=== PATIENT | female | born 1955 | race Caucasian/White ===

== ENCOUNTER 2019-03-21 07:56 | Inpatient (IN) | payer MEDICAID ==
[~2019-03-21 07:56] MED LIST: Acetaminophen 325 MG Tab PO SCH; EPINEPHrine 1 MG/ML SDV ONE; Lactated Ringers 1,000 ML IV SCH; Lidocaine 1%/Sod Bicarbonate in NS 8.4% 1 ML Syringe IDERM PRN; Pregabalin 25 MG Cap PO SCH; Ropivacaine 0.5% 5 MG/ML 30 ML SDV ONE; Sodium Chloride 0.9% 10 ML Syringe FLUSH PRN; oxyCODONE ER 10 MG TAB.ER PO SCH
[2019-03-21] MEDS ORDERED: fentaNYL 100 MCG/2 ML SDV ONE (08:44)
[2019-03-21] MEDS ORDERED: Propofol 200 MG/20 ML SDV ONE (08:44)
[2019-03-21] MEDS ORDERED: Midazolam 1 MG/ML 2 ML SDV ONE (08:44)
[2019-03-21] MEDS ORDERED: Lidocaine 1% 4 ML ONE (08:45)
[2019-03-21] MEDS ORDERED: Ketorolac 30 MG/ML SDV ONE (08:45)
[2019-03-21] MEDS ORDERED: Ketamine 500 mg/10 ML MDV ONE (08:45)
[2019-03-21] MEDS ORDERED: Ondansetron 4 MG/2 ML SDV ONE (08:45)
[2019-03-21] MEDS ORDERED: Dexamethasone 4 MG/ML 5 ML MDV ONE (08:45)
[2019-03-21] MEDS ORDERED: Lactated Ringers 1,000 ML ONE (08:51)
--- NOTE | 2019-03-21 08:54 | PCM.PREANE ---
Preanesthetic Assessment - Procedure Proposed Procedure: right total knee - Anesthesia/Transfusion/Family Hx Anesthesia History: Prior Anesthesia Without Reaction Family History of Anesthesia Reaction: No Family History of Anesthesia Reaction, Other: Family history of pseudocholinesterase deficiency Transfusion History: No Prior Transfusion(s) Intubation History: Unknown - Review of Systems General: No Symptoms Pulmonary: No Symptoms Cardiovascular: No Symptoms Gastrointestinal: No Symptoms Neurological: No Symptoms Other: Reports: None - Physical Assessment NPO Status Date: 03/20/19 NPO Status Time: 19:00 (pill with sip of water) Vital Signs: Last Vital Signs Temp 97.4 F 03/21/19 08:05 Pulse 59 L 03/21/19 08:05 Resp 16 03/21/19 08:05 BP 99/63 03/21/19 08:05 Pulse Ox 99 03/21/19 08:05 Height: 5 ft 7 in Weight: 78.925 kg ASA Class: 2 Mental Status: Alert & Oriented x3 Airway Class: Mallampati = 1 Dentition: Reports: Normal Dentition, Missing Tooth/Teeth Thyro-Mental Finger Breadths: 3 Mouth Opening Finger Breadths: 3 ROM/Head Extension: Full Lungs: Clear to Auscultation, Normal Respiratory Effort Cardiovascular: Regular Rate, Regular Rhythm - Lab Values: Laboratory Last Values MRSA (PCR) Negative 02/23/19 14:48 - Allergies Allergies/Adverse Reactions: Allergies Allergy/AdvReac Type Severity Reaction Status Date / Time No Known Allergies Allergy Verified 03/18/19 14:49 - Blood Blood Available: No - Acknowledgements Anesthesia Type Planned: Spinal Pt an Appropriate Candidate for the Planned Anesthesia: Yes Alternatives and Risks of Anesthesia Discussed w Pt/Guardian: Yes Pt/Guardian Understands and Agrees with Anesthesia Plan: Yes PreAnesthesia Questionnaire HEENT History: Reports: Hard of Hearing, Other (See Below) Other HEENT History: left eye conjunctivitis, wears contacts Cardiovascular History: Reports: High Cholesterol, Hypertension Respiratory History: Reports: None Gastrointestinal History: Reports: None Genitourinary History: Reports: None [employer] History: Reports: Musculoskeletal History: Reports: Arthritis Other Musculoskeletal History: Rib and pelvis fracture from horse accident, bakers cyst Neurological History: Reports: None Psychiatric History: Reports: None Endocrine/Metabolic History: Reports: None Hematologic History: Reports: None Immunologic History: Reports: None Oncologic (Cancer) History: Reports: Breast (august 2018) Dermatologic History: Reports: None, Other (See Below) Other Dermatologic History: atopic dermatitis - Infectious Disease History Infectious Disease History: Reports: Chicken Pox, Mumps - Past Surgical History Head Surgeries/Procedures: Reports: None HEENT Surgical History: Reports: Cataract Surgery Cardiovascular Surgical History: Reports: None Respiratory Surgical History: Reports: None GI Surgical History: Reports: None Female Surgical History: Reports: Section Male Surgical History: Reports: None Endocrine Surgical History: Reports: None Neurological Surgical History: Reports: None Musculoskeletal Surgical History: Reports: Knee Replacement Oncologic Surgical History: Reports: None, Lumpectomy Dermatological Surgical History: Reports: None - SUBSTANCE USE Smoking Status *Q: Never Smoker Tobacco Use Within Last Twelve Months: No Second Hand Smoke Exposure: No Days Per Week of Alcohol Use: 0 Recreational Drug Use History: No - HOME MEDS Home Medications: Home Meds Calcium Carb & Citrate/Vit D3 [Citracal + D ER] 1 tab PO DAILY 03/19/18 [History ] Cholecalciferol (Vitamin D3) [Vitamin D3] 5,000 unit PO DAILY 03/19/18 [History] FA/Lycopene/Lut/MV,Ca,Iron,Min [Centrum] 1 tab PO DAILY 03/19/18 [History] atorvaSTATin [Lipitor] 20 mg PO DAILY 03/19/18 [History] Anastrozole [Arimidex] 1 mg PO DAILY 03/18/19 [History] Ascorbate Calcium/Bioflavonoid [Trinh-C 1,000 mg Tablet] 1 tab PO DAILY PRN [History] Aspirin [Halfprin] 81 mg PO DAILY 03/18/19 [History] Hydrochlorothiazide [Microzide] 12.5 mg PO DAILY 03/18/19 [History] Lisinopril [Prinivil] 20 mg PO DAILY 03/18/19 [History] - CURRENT (IN HOUSE) MEDS Current Meds: Current Medications Acetaminophen (Tylenol) 975 mg PO ONETIME [facility] Stop: 03/21/19 18:00 Last Admin: 03/21/19 08:14 Dose: 975 mg Bisacodyl (Dulcolax) 5 mg PO DAILY PRN PRN Reason: Constipation Morphine Sulfate 8 mg/Epinephrine HCl 0.3 mg/Cefuroxime Sodium 750 mg/Ketorolac Tromethamine 30 mg/Sodium Chloride 27.9 ml 0 mg .XX ONETIME ONE Stop: 03/21/19 12:01 Cyclobenzaprine HCl (Flexeril) 10 mg PO TID PRN PRN Reason: Spasms Docusate Sodium (Colace) 100 mg PO BID [facility] Famotidine (Pepcid) 20 mg PO Q12H [facility] Lactated Ringer's (Ringers, Lactated) 1,000 mls @ 125 mls/hr IV ASDIRECTED [facility] Stop: 03/21/19 23:00 Cefazolin Sodium/Dextrose 2 gm (/ Premix) 50 mls @ 100 mls/hr IV Q8H [facility] Stop: 03/22/19 11:29 Ketorolac Tromethamine (Toradol) 15 mg IVPUSH Q6H PRN PRN Reason: Pain Lidocaine/Sodium Bicarbonate (Buffered Lidocaine 1% In Ns 8.4%) 0.25 ml IDERM ONETIME PRN PRN Reason: Prior to IV Start Stop: 03/21/19 18:00 Magnesium Hydroxide (Milk Of Magnesia) 30 ml PO BID PRN PRN Reason: Constipation Morphine Sulfate (Morphine) 2 mg IVPUSH Q2H PRN PRN Reason: Breakthrough Pain Naloxone HCl (Narcan) 0.1 mg IVPUSH Q5M PRN PRN Reason: Oversedation Ondansetron HCl (Zofran) 4 mg IVPUSH Q6H PRN PRN Reason: Nausea/Vomiting Oxycodone HCl (Oxycontin) 10 mg PO ONETIME [facility] Stop: 03/21/19 18:00 Last Admin: 03/21/19 08:14 Dose: 10 mg Oxycodone/Acetaminophen (Percocet 325-5 Mg) 1 - 2 tab PO Q4H PRN PRN Reason: Pain Pregabalin (Lyrica) 50 mg PO ONETIME [facility] Stop: 03/21/19 18:00 Last Admin: 03/21/19 08:14 Dose: 50 mg Rivaroxaban (Xarelto) 10 mg PO DAILY [facility] Senna (Senna) 8.6 mg PO BID PRN PRN Reason: Constipation Sodium Chloride (Saline Flush) 10 ml FLUSH ASDIRECTED PRN PRN Reason: Keep Vein Open Stop: 03/21/19 18:00 Discontinued Medications Epinephrine HCl (Adrenalin) Confirm Administered Dose 1 mg .ROUTE .STK-MED ONE Stop: 03/21/19 03:33 Ropivacaine (Naropin 0.5%) Confirm Administered Dose 30 ml .ROUTE .[facility]-MED ONE Stop: 03/21/19 03:33
[2019-03-21] MEDS ORDERED: ceFAZolin 1 GM Vial ONE (09:07)
[2019-03-21] MEDS ORDERED: ePHEDrine/Normal Saline 25 MG/5 ML Syringe ONE (10:50)
[2019-03-21] MEDS: Iodine/Sodium Iodide 2% Tincture 30 ML Bottle ONE ×2 (10:56→11:27)
[2019-03-21] MEDS: ceFAZolin 1 GM Vial ONE ×2 (10:57→11:29)
[2019-03-21] MEDS: Morphine 8 MG, EPINEPHrine 0.3 MG, Cefuroxime 750 MG, Ketorolac 30 MG, Sodium Chloride ... ONE ×15 (10:57→13:48)
[2019-03-21] MEDS: Bupivacaine 0.25% 10 ML SDV ONE ×2 (10:57→11:33)
[2019-03-21] MEDS: Vancomycin 1 GM SDV ONE ×2 (10:58→11:37)
[2019-03-21] MEDS ORDERED: Ondansetron 4 MG/2 ML SDV IVPUSH PRN ×2 (11:09→12:00)
[2019-03-21] MEDS ORDERED: fentaNYL 100 MCG/2 ML SDV IVPUSH PRN (11:09)
[2019-03-21] MEDS ORDERED: HYDROmorphone 0.5 MG/0.5 ML Syringe IVPUSH PRN (11:09)
[2019-03-21] MEDS ORDERED: Ketorolac 15 MG/ML SDV IVPUSH PRN (12:00)
[2019-03-21] MEDS ORDERED: Cyclobenzaprine 10 MG Tab PO PRN (12:00)
[2019-03-21] MEDS ORDERED: Acetaminophen/oxyCODONE 325-5 MG Tab PO PRN (12:00)
[2019-03-21] MEDS ORDERED: Sennosides 8.6 MG Tab PO PRN (12:00)
[2019-03-21] MEDS ORDERED: Magnesium Hydroxide 400 MG/5 ML Susp 30 ML Cup PO PRN (12:00)
[2019-03-21] MEDS ORDERED: Bisacodyl 5 MG Tab PO PRN (12:00)
[2019-03-21] MEDS ORDERED: Morphine 2 MG/ML Syringe IVPUSH PRN (12:00)
[2019-03-21] MEDS ORDERED: Naloxone 0.4 MG/ML SDV IVPUSH PRN (12:00)
--- NOTE | 2019-03-21 12:24 | PCM.POSTAN ---
POST ANESTHESIA ASSESSMENT - MENTAL STATUS Mental Status: Alert, Oriented - VITAL SIGNS Vital Signs: Last Vital Signs Temp 36.3 C 03/21/19 08:05 Pulse 59 L 03/21/19 08:05 Resp 16 03/21/19 08:05 BP 99/63 03/21/19 08:05 Pulse Ox 99 03/21/19 08:05 - RESPIRATORY Respiratory Status: Respiratory Rate WNL, Airway Patent, O2 Saturation Stable, Supplemental Oxygen - CARDIOVASCULAR CV Status: Pulse Rate WNL, Blood Pressure Stable - GASTROINTESTINAL GI Status: No Symptoms - PAIN Pain Score: 0 - POST OP HYDRATION Hydration Status: Adequate & Stable
--- NOTE | 2019-03-21 12:27 | PCM.SN ---
- Free Text/Narrative Note: Right selective femoral nerve block at the adductor canal for post-operative pain control Time Out: 1213 Start: 1214 End: 1218 Chart reviewed. Consent signed. Questions answered. Appropriate monitors applied. Time out performed. Right mid-shaft femur identified via ultrasound. Scanning medially of right femur, identification of the femoral artery, femoral vein, and nerve bundles noted within the adductor canal. The skin was prepped lateral to the ultrasound probe with chlorahexadine times two. The 21ga 4 insulated block needle was inserted under direct ultrasound guidance into the adductor canal. 25mL of 0.5% ropivacaine with 1:200,000 epinephrine was injected cirmcumferentially around the nerve with intermittent negative aspiration noted every 5mLs. Procedure performed under aseptic technique with sterile probe cover, sterile gloves, and mask noted. Patient tolerated the procedure well. See pictures on progress note and vital signs on nurses notes. Block completed postoperatively. Manoj Patel CRNA
--- NOTE | 2019-03-21 12:50 | CR ---
Right knee: AP and crosstable lateral views of the right knee were obtained. Comparison: No previous right knee study. Knee prosthesis is seen. Components are aligned. Soft tissue air is seen. No acute fracture or other abnormality is seen. Impression: 1. Satisfactory postoperative radiographic appearance of recently placed right knee prosthesis. Diagnostic code #2
[2019-03-21] MEDS: oxyCODONE 5 MG Tab PO PRN ×2 (15:57→20:05)
[2019-03-21] MEDS: ceFAZolin 2 GM in Premix Bag 1 BAG IV SCH (18:01)
[2019-03-21] MEDS: Docusate Sodium 100 MG Cap PO SCH (20:04)
[2019-03-21] MEDS: Famotidine 20 MG Tab PO SCH (20:04)
[2019-03-22] MEDS: ceFAZolin 2 GM in Premix Bag 1 BAG IV SCH ×2 (03:16→11:25)
[2019-03-22] MEDS: oxyCODONE 5 MG Tab PO PRN ×3 (03:16→13:16)
--- NOTE | 2019-03-22 06:37 | PCM.SURGPN ---
- General Info Date of Service: 03/22/19 POD#: 1 Functional Status: Reports: Pain Controlled, Tolerating Diet, Ambulating, Urinating, Incentive Spirometry, Other (The pt states she has been moving well.) - Review of Systems General: Denies: Fever, Chills Pulmonary: Denies: Shortness of Breath Cardiovascular: Denies: Chest Pain Gastrointestinal: Denies: Abdominal Pain - Patient Data Vitals - Most Recent: Last Vital Signs Temp 97.5 F 03/21/19 20:03 Pulse 61 03/22/19 03:24 Resp 14 03/22/19 03:24 BP 108/55 L 03/22/19 03:24 Pulse Ox 95 03/22/19 03:24 Weight - Most Recent: 184 lb I&O - Last 24 Hours: Intake & Output 03/21/19 03/21/19 03/22/19 14:59 22:59 06:59 Intake Total 340 780 900 Output Total 0 1950 Balance 340 780 -1050 Lab Results Last 24 Hrs: Laboratory Results - last 24 hr 03/22/19 03/22/19 Range/Units 04:50 04:50 WBC 11.38 H (3.98-10.04) K/mm3 RBC 3.50 L (3.98-5.22) M/mm3 Hgb 10.6 L (11.2-15.7) gm/dl Hct 32.1 L (34.1-44.9) % MCV 91.7 D (79.4-94.8) fl MCH 30.3 (25.6-32.2) pg MCHC 33.0 (32.2-35.5) g/dl RDW Std Deviation 38.6 (36.4-46.3) fL Plt Count 287 D (182-369) K/mm3 MPV 10.4 (9.4-12.3) fl Sodium 137 (136-145) mEq/L Potassium 3.9 (3.5-5.1) mEq/L Chloride 103 (98-107) mEq/L Carbon Dioxide 26 (21-32) mEq/L Anion Gap 11.9 (5-15) BUN 13 (7-18) mg/dL Creatinine 0.9 (0.55-1.02) mg/dL Est Cr Clr Drug Dosing 61.41 mL/min Estimated GFR (MDRD) > 60 (>60) mL/min BUN/Creatinine Ratio 14.4 (14-18) Glucose 125 H (80-115) mg/dL Calcium 8.3 L (8.5-10.1) mg/dL Total Bilirubin 0.3 (0.2-1.0) mg/dL AST 15 (15-37) U/L ALT 23 (14-59) U/L Alkaline Phosphatase 55 (46-116) U/L Total Protein 5.6 L (6.4-8.2) g/dl Albumin 3.0 L (3.4-5.0) g/dl Globulin 2.6 gm/dL Albumin/Globulin Ratio 1.2 (1-2) Med Orders - Current: Current Medications Anastrozole (Arimidex) 1 mg PO DAILY [facility] Bisacodyl (Dulcolax) 5 mg PO DAILY PRN PRN Reason: Constipation Calcium Carbonate (Calcium Carbonate/Vitamin D 600 Mg-200 Unit) 1 tab PO DAILY [facility] Cholecalciferol (Vitamin D3) 5,000 unit PO DAILY [facility] Cyclobenzaprine HCl (Flexeril) 10 mg PO TID PRN PRN Reason: Spasms Last Admin: 03/21/19 18:58 Dose: 10 mg Docusate Sodium (Colace) 100 mg PO BID [facility] Last Admin: 03/21/19 20:04 Dose: 100 mg Famotidine (Pepcid) 20 mg PO Q12H [facility] Last Admin: 03/21/19 20:04 Dose: 20 mg Cefazolin Sodium/Dextrose 2 gm (/ Premix) 50 mls @ 100 mls/hr IV Q8H [facility] Stop: 03/22/19 11:29 Last Admin: 03/22/19 03:16 Dose: 100 mls/hr Ketorolac Tromethamine (Toradol) 15 mg IVPUSH Q6H PRN PRN Reason: Pain Lisinopril (Prinivil) 20 mg PO DAILY [facility] Magnesium Hydroxide (Milk Of Magnesia) 30 ml PO BID PRN PRN Reason: Constipation Morphine Sulfate (Morphine) 2 mg IVPUSH Q2H PRN PRN Reason: Breakthrough Pain Multivitamins (Thera) 1 each PO DAILY [facility] Naloxone HCl (Narcan) 0.1 mg IVPUSH Q5M PRN PRN Reason: Oversedation Ondansetron HCl (Zofran) 4 mg IVPUSH Q6H PRN PRN Reason: Nausea/Vomiting Oxycodone HCl (Oxycodone) 5 - 10 mg PO Q4H PRN PRN Reason: Pain Last Admin: 03/22/19 03:16 Dose: 10 mg Rivaroxaban (Xarelto) 10 mg PO DAILY [facility] Senna (Senna) 8.6 mg PO BID PRN PRN Reason: Constipation Simvastatin (Zocor) 20 mg PO DAILY [facility] Discontinued Medications Acetaminophen (Tylenol) 975 mg PO ONETIME [facility] Stop: 03/21/19 18:00 Last Admin: 03/21/19 08:14 Dose: 975 mg Bupivacaine HCl (Sensorcaine-Mpf 0.25%) Confirm Administered Dose 30 ml .ROUTE .STK-MED ONE Stop: 03/21/19 09:08 Last Admin: 03/21/19 11:33 Dose: 30 ml Cefazolin Sodium (Ancef) Confirm Administered Dose 2 gm .ROUTE .STK-MED ONE Stop: 03/21/19 08:46 Last Admin: 03/21/19 11:29 Dose: 2 gm Cefazolin Sodium (Ancef) Confirm Administered Dose 2 gm .ROUTE .STK-MED ONE Stop: 03/21/19 09:08 Morphine Sulfate 8 mg/Epinephrine HCl 0.3 mg/Cefuroxime Sodium 750 mg/Ketorolac Tromethamine 30 mg/Sodium Chloride 27.9 ml 0 mg .XX ONETIME ONE Stop: 03/21/19 12:01 Last Admin: 03/21/19 13:48 Dose: Not Given Dexamethasone (Dexamethasone) Confirm Administered Dose 20 mg .ROUTE .STK-MED ONE Stop: 03/21/19 08:46 Ephedrine Sulfate (Ephedrine In Ns) Confirm Administered Dose 25 mg .ROUTE .STK- MED ONE Stop: 03/21/19 10:51 Epinephrine HCl (Adrenalin) Confirm Administered Dose 1 mg .ROUTE .STK-MED ONE Stop: 03/21/19 03:33 Fentanyl (Sublimaze) Confirm Administered Dose 100 mcg .ROUTE .STK-MED ONE Stop: 03/21/19 08:45 Fentanyl (Sublimaze) 50 mcg IVPUSH Q5M PRN PRN Reason: Pain Stop: 03/21/19 15:00 Hydromorphone HCl (Dilaudid) 0.5 mg IVPUSH Q10M PRN PRN Reason: Pain (severe 7-10) Stop: 03/21/19 14:00 Lactated Ringer's (Ringers, Lactated) 1,000 mls @ 125 mls/hr IV ASDIRECTED [facility] Stop: 03/21/19 23:00 Last Admin: 03/21/19 08:30 Dose: 125 mls/hr Lidocaine HCl (Xylocaine-Mpf 1%) Confirm Administered Dose 4 mls @ as directed .ROUTE .STK-MED ONE Stop: 03/21/19 08:46 Lactated Ringer's (Ringers, Lactated) Confirm Administered Dose 1,000 mls @ as directed .ROUTE .STK-MED ONE Stop: 03/21/19 08:52 Iodine (Iodine 2% Mild Tincture) Confirm Administered Dose 30 ml .ROUTE .STK- MED ONE Stop: 03/21/19 09:08 Last Admin: 03/21/19 11:27 Dose: 18 ml Ketamine HCl (Ketalar) Confirm Administered Dose 500 mg .ROUTE .STK-MED ONE Stop: 03/21/19 08:46 Ketorolac Tromethamine (Toradol) Confirm Administered Dose 30 mg .ROUTE .STK- MED ONE Stop: 03/21/19 08:46 Lidocaine/Sodium Bicarbonate (Buffered Lidocaine 1% In Ns 8.4%) 0.25 ml IDERM ONETIME PRN PRN Reason: Prior to IV Start Stop: 03/21/19 18:00 Last Admin: 03/21/19 08:30 Dose: 0.25 ml Midazolam HCl (Versed 1 Mg/Ml) Confirm Administered Dose 2 mg .ROUTE .STK-MED ONE Stop: 03/21/19 08:45 Ondansetron HCl (Zofran) Confirm Administered Dose 4 mg .ROUTE .STK-MED ONE Stop: 03/21/19 08:46 Ondansetron HCl (Zofran) 4 mg IVPUSH ONETIME PRN PRN Reason: Nausea/Vomiting Stop: 03/21/19 14:00 Oxycodone HCl (Oxycontin) 10 mg PO ONETIME [facility] Stop: 03/21/19 18:00 Last Admin: 03/21/19 08:14 Dose: 10 mg Oxycodone/Acetaminophen (Percocet 325-5 Mg) 1 - 2 tab PO Q4H PRN PRN Reason: Pain Pregabalin (Lyrica) 50 mg PO ONETIME [facility] Stop: 03/21/19 18:00 Last Admin: 03/21/19 08:14 Dose: 50 mg Propofol (Diprivan 20 Ml) Confirm Administered Dose 600 mg .ROUTE .STK-MED ONE Stop: 03/21/19 08:45 Ropivacaine (Naropin 0.5%) Confirm Administered Dose 30 ml .ROUTE .STK-MED ONE Stop: 03/21/19 03:33 Sodium Chloride (Saline Flush) 10 ml FLUSH ASDIRECTED PRN PRN Reason: Keep Vein Open Stop: 03/21/19 18:00 Tranexamic Acid (Cyklokapron) Confirm Administered Dose 1,000 mg .ROUTE .STK- MED ONE Stop: 03/21/19 09:08 Last Admin: 03/21/19 11:41 Dose: 1,000 mg Vancomycin HCl (Vancomycin) Confirm Administered Dose 1 gm .ROUTE .STK-MED ONE Stop: 03/21/19 09:08 Last Admin: 03/21/19 11:37 Dose: 1 gm - Exam Wound/Incisions: Dressing Dry and Intact General: Alert, Cooperative, No Acute Distress Lungs: Normal Respiratory Effort Extremities: Other (NVS intact for BLE. Kb's negative BLE.) - Problem List Review Problem List Initiated/Reviewed/Updated: Yes - My Orders Last 24 Hours: Active Orders 24 hr Category Date Time Status Patient Status [ADT] Routine ADT 03/21/19 06:52 Active Ambulate [RC] DAILY Care 03/21/19 06:52 Active Antiembolic Devices [RC] BID Care 03/21/19 06:52 Active Cooling Warming Measures [RC] .PRN Care 03/21/19 11:09 Inactive May Shower [RC] DAILY Care 03/21/19 06:52 Active Oxygen Therapy [RC] PRN Care 03/21/19 06:52 Active Pulse Oximetry [RC] .PRN Care 03/21/19 11:09 Active RT Incentive Spirometry [RC] Q1HWA Care 03/21/19 06:51 Active Up to Chair [RC] DAILY Care 03/21/19 06:52 Active Vital Signs [RC] Q4HR Care 03/21/19 11:09 Active OT Evaluation and Treatment [CONS] Routine Cons 03/21/19 06:51 Active PT Evaluation and Treatment [CONS] Routine Cons 03/21/19 06:51 Active Regular Diet [DIET] Diet 03/21/19 Lunch Active Anastrozole [Arimidex] Med 03/22/19 09:00 Active 1 mg PO DAILY Bisacodyl [Dulcolax] Med 03/21/19 12:00 Active 5 mg PO DAILY PRN Calcium Carbonate/Vitamin D3 [Calcium Carbonate/Vitamin Med 03/22/19 09:00 Active D 600 MG-200 Unit] 1 tab PO DAILY Cholecalciferol (Vitamin D3) [Vitamin D3] Med 03/22/19 09:00 Active 5,000 unit PO DAILY Cyclobenzaprine [Flexeril] Med 03/21/19 12:00 Active 10 mg PO TID PRN Docusate Sodium [Colace] Med 03/21/19 21:00 Active 100 mg PO BID Famotidine [Pepcid] Med 03/21/19 21:00 Active 20 mg PO Q12H Ketorolac [Toradol] Med 03/21/19 12:00 Active 15 mg IVPUSH Q6H PRN Lisinopril [Prinivil] Med 03/22/19 09:00 Active 20 mg PO DAILY Magnesium Hydroxide [Milk of Magnesia] Med 03/21/19 12:00 Active 30 ml PO BID PRN Morphine Med 03/21/19 12:00 Active 2 mg IVPUSH Q2H PRN Multivitamins,Therapeutic [Thera] Med 03/22/19 09:00 Active 1 each PO DAILY Naloxone [Narcan] Med 03/21/19 12:00 Active 0.1 mg IVPUSH Q5M PRN Ondansetron [Zofran] Med 03/21/19 12:00 Active 4 mg IVPUSH Q6H PRN Rivaroxaban [Xarelto] Med 03/22/19 09:00 Pending 10 mg PO DAILY Sennosides [Senna] Med 03/21/19 12:00 Active 8.6 mg PO BID PRN Simvastatin [Zocor] Med 03/22/19 09:00 Active 20 mg PO DAILY ceFAZolin [Ancef] 2 gm Med 03/21/19 19:00 Active Premix Bag 1 bag IV Q8H oxyCODONE Med 03/21/19 14:47 Active 5 - 10 mg PO Q4H PRN Antiembolic Hose [OM.PC] Per Unit Routine Oth 03/21/19 06:53 Ordered Ice Therapy [OM.PC] Per Unit Routine Oth 03/21/19 06:53 Ordered Sequential Compression Device [OM.PC] Per Unit Routine Oth 03/21/19 06:51 Ordered Resuscitation Status Routine Resus Stat 03/21/19 06:52 Ordered Medication Orders Anastrozole (Arimidex) 1 mg PO DAILY [facility] Bisacodyl (Dulcolax) 5 mg PO DAILY PRN PRN Reason: Constipation Calcium Carbonate (Calcium Carbonate/Vitamin D 600 Mg-200 Unit) 1 tab PO DAILY [facility] Cholecalciferol (Vitamin D3) 5,000 unit PO DAILY [facility] Cyclobenzaprine HCl (Flexeril) 10 mg PO TID PRN PRN Reason: Spasms Last Admin: 03/21/19 18:58 Dose: 10 mg Docusate Sodium (Colace) 100 mg PO BID [facility] Last Admin: 03/21/19 20:04 Dose: 100 mg Famotidine (Pepcid) 20 mg PO Q12H [facility] Last Admin: 03/21/19 20:04 Dose: 20 mg Cefazolin Sodium/Dextrose 2 gm (/ Premix) 50 mls @ 100 mls/hr IV Q8H [facility] Stop: 03/22/19 11:29 Last Admin: 03/22/19 03:16 Dose: 100 mls/hr Infusion: 03/21/19 18:31 Dose: 100 mls/hr Admin: 03/21/19 18:01 Dose: 100 mls/hr Ketorolac Tromethamine (Toradol) 15 mg IVPUSH Q6H PRN PRN Reason: Pain Lisinopril (Prinivil) 20 mg PO DAILY [facility] Magnesium Hydroxide (Milk Of Magnesia) 30 ml PO BID PRN PRN Reason: Constipation Morphine Sulfate (Morphine) 2 mg IVPUSH Q2H PRN PRN Reason: Breakthrough Pain Multivitamins (Thera) 1 each PO DAILY [facility] Naloxone HCl (Narcan) 0.1 mg IVPUSH Q5M PRN PRN Reason: Oversedation Ondansetron HCl (Zofran) 4 mg IVPUSH Q6H PRN PRN Reason: Nausea/Vomiting Oxycodone HCl (Oxycodone) 5 - 10 mg PO Q4H PRN PRN Reason: Pain Last Admin: 03/22/19 03:16 Dose: 10 mg Admin: 03/21/19 20:05 Dose: 10 mg Admin: 03/21/19 15:57 Dose: 10 mg Rivaroxaban (Xarelto) 10 mg PO DAILY [facility] Senna (Senna) 8.6 mg PO BID PRN PRN Reason: Constipation Simvastatin (Zocor) 20 mg PO DAILY [facility] - Assessment Assessment (Free Text/Narrative):: POD#1 - right TKA - Plan Plan (Free Text/Narrative):: 1. Hgb 10.6. 2. Xarelto 10mg PO daily (recent dx breast cancer). 3. Outpatient therapy. 4. Discharge to home today. The pt's case was discussed with Dr. Ham.
--- NOTE | 2019-03-22 08:49 | PCM48HPAN ---
Post Anesthesia Note - EVALUATION WITHIN 48HRS OF ANESTHETIC Vital Signs in Normal Range: Yes Patient Participated in Evaluation: Yes Respiratory Function Stable: Yes Airway Patent: Yes Cardiovascular Function Stable: Yes Hydration Status Stable: Yes Pain Control Satisfactory: Yes Nausea and Vomiting Control Satisfactory: Yes Mental Status Recovered: Yes Vital Signs: Last Vital Signs Temp 36.4 C 03/21/19 20:03 Pulse 61 03/22/19 03:24 Resp 14 03/22/19 03:24 BP 108/55 L 03/22/19 03:24 Pulse Ox 95 03/22/19 03:24
[2019-03-22] MEDS: Famotidine 20 MG Tab PO SCH (08:55)
[2019-03-22] MEDS: Docusate Sodium 100 MG Cap PO SCH (08:56)
[2019-03-22] MEDS ORDERED: Cholecalciferol (Vitamin D3) 5,000 UNIT Tab PO SCH (09:00)
[2019-03-22] MEDS ORDERED: Lisinopril 20 MG Tab PO SCH (09:00)
[2019-03-22] MEDS ORDERED: Calcium Carbonate/Vitamin D3 600 MG-200 Units Tab PO SCH (09:00)
[2019-03-22] MEDS ORDERED: Multivitamins,Therapeutic Tab PO SCH (09:00)
[2019-03-22] MEDS ORDERED: Simvastatin 20 MG Tab PO SCH (09:00)
[2019-03-22] MEDS ORDERED: Anastrozole 1 MG Tab PO SCH (09:00)
[2019-03-22] MEDS ORDERED: Rivaroxaban 10 MG Tab PO SCH (09:00)
--- NOTE | 2019-03-24 09:44 | PCM.OPNOTE ---
- General Post-Op/Procedure Note Date of Surgery/Procedure: 03/21/19 Operative Procedure(s): right total knee arthroplasty Pre Op Diagnosis: right knee osteoarthrosis Post-Op Diagnosis: Same Anesthesia Technique: Local, MAC, Spinal Primary Surgeon: Sheldon Ham Anesthesia Provider: Sue Patel Artificial Breeding Distributor: Bev Stark Artificial Breeding Distributor: Emma Garcia in mLs: 5 Complications: None Condition: Good Free Text/Narrative:: size 5/5 cemented 9mm 29x9
--- NOTE | 2019-03-24 11:01 | OR ---
DATE OF OPERATION: 03/21/2019 SURGEON: Sheldon Ham MD OPERATION PERFORMED: Right total knee arthroplasty. PREOPERATIVE DIAGNOSIS: Right knee osteoarthrosis. POSTOPERATIVE DIAGNOSIS: Right knee osteoarthrosis. ANESTHESIA: Local MAC with spinal. ANESTHESIA PROVIDER: darcie HOST/HOSTESS HEAD: Bev Stark PA-C and Emma Garcia LPN. ESTIMATED BLOOD LOSS: 5 mL. COMPLICATIONS: None. CONDITION: Stable. IMPLANTS: 1. Whick size 5 cemented PS femur. 2. Whick size 5 cemented universal tibial baseplate. 3. Whick size 5 9 mm PS X3 polyethylene. 4. Whick size 29 x 9 mm cemented asymmetric patella. DESCRIPTION OF PROCEDURE: The patient was identified in the preop holding area. Proper site was marked and identified by the surgeon. The patient was taken back to the operating theater. After adequate anesthesia, the patient's right lower extremity had a nonsterile tourniquet applied and it was sterilely prepped and draped in the usual sterile fashion. OR time-out was performed. The patient received 2 g IV Ancef. At this time, the right lower extremity was exsanguinated. Tourniquet was insufflated to 300 mmHg. Standard medial parapatellar incision was made. Medial parapatellar arthrotomy was created. Deep fibers of the MCL were raised and anterior fat pad was resected. At this time, attention was turned to the patella. Patella measured 22, it was resected to a 13 for 9 x 9 mm patella. Drill holes were then drilled and found to be in adequate position. The drill was then drilled in the distal femur and the intramedullary distal femoral cutting guide was then placed. 8 mm was resected off the distal femur and was found to be an adequate resection. Sizing guide was placed. It was found to be a size 5 cemented PS femur that was shown on the implant record at the beginning of this dictation. The drill holes were drilled for the epicondylar axis using Whitesides line and epicondyles as reference. At this time, the 4-in-1 cutting block was placed. An anterior posterior and anterior and posterior chamfer cuts were then completed. Box cut was completed at this time. Attention was turned to the tibia. The posterior medial lateral retractors were placed. The extramedullary tibial guide was placed. It was placed in the old footprint of the ACL. It was aligned with the center of the ankle and 0 degrees of slope, 9 mm was then resected off the unaffected side. There was found to be an acceptable reduction. At this time, posterior osteophytes were removed along with medial and lateral meniscus. A trial implant was placed with a correct sized tibia that was mentioned at the beginning of the dictation. A Ivan size 5 9 mm PS X3 polyethylene insert was then placed. The patient's knee was brought through range of motion. The patella was tracking centrally and was stable to varus and valgus stress. Alignment was found to be roughly at 0 degrees. The tibia was stamped and drilled in proper rotation. Cement was mixed and cut surfaces were irrigated and dried. The universal tibial base plate was impacted in place. Next, the Whick size 5 cemented PS femur impacted into place and the Ivan size 5 9 mm PS X3 polyethylene insert was placed. The patient's knee was brought into full extension. The patella was then press-fit in place at this time. Tourniquet was deflated. One liter dilute Betadine solution was irrigated through the knee along with 3 L of pulse lavage irrigation with Ancef. Periarticular injection was then completed. The patient's knee was brought through a range of motion. Once the cement had time to set up and it was found to be stable to varus valgus stress, the patella was tracking centrally with full range of motion. At this time, a #2 barbed suture was used for closure of the medial parapatellar arthrotomy. Topical tranexamic acid was placed. 2-0 Vicryl was used subcutaneously, Prineo was used for the skin. The patient tolerated the procedure well and was sent to the PACU in stable condition. XAVIER /[id number] VARSHA
--- NOTE | 2019-03-24 13:57 | PCM.DCSUM1 ---
Discharge Summary - Hospital Course Brief History: Debora is a 63 yo female who underwent right TKA with Dr. Ham on 03-21-2019. The procedure was completed under spinal anesthesia with sedation. The pt tolerated the procedure well and was transferred to the Medical- Surgical Unit. The pt's Hospital course was uneventful. The pt's Hgb on POD#1 was 10.6. On POD#1, Xarelto 10mg PO daily was initiated for VTE prophylaxis. SCDs and TEDs were also ordered. A Mepilex dressing was placed at the incision site at the time of surgery and remained clean and dry. The pt participated in P.T. and O.T. and progressed well. The pt was allowed to WBAT. On POD#1, the pt was deemed appropriate to discharge to home. - Discharge Data Discharge Date: 03/22/19 Discharge Disposition: Home, Self-Care 01 Condition: Good - Referral to Home Health Primary Care Physician: Kristen Mckoy MD - Patient Summary/Data Operative Procedure(s) Performed: right total knee arthroplasty Consults: Consultations 03/21/19 06:51 OT Evaluation and Treatment [CONS] Routine PT Evaluation and Treatment [CONS] Routine - Patient Instructions Diet: Usual Diet as Tolerated Activity: Apply Ice, As Tolerated, Elevate Extremity, Full Weight Bearing Driving: Do Not Drive Showering/Bathing: May Shower Wound/Incision Care: Keep Operative Site/Wound Site Clean and Dry, Do NOT Change Dressing Notify Provider of: Fever, Increased Pain, Swelling and Redness, Drainage, Nausea and/or Vomiting Other/Special Instructions: Please get up and moving around EVERY HOUR while awake. This helps to prevent blood clots. Please use your walker and have help with mobility as needed. Take a short walk in your home every hour while awake. Please take the Xarelto blood thinner medication daily as directed. At home, please complete the exercises that you learned during the Hospital stay. Schedule for physical therapy. Use the pain medication as needed. The medication may cause drowsiness and constipation. Contact your primary care provider for instructions if you are constipated. You may use a stool softener like docusate sodium or Colace 100mg twice daily and/or a laxative like Miralax daily for constipation. Increase your water and fiber intake while you are using the pain medication. Discontinue use of the pain medication as soon as able. Please do not use other medications that may cause drowsiness (other pain medications, anxiety pills, cold medications, sleeping pills, etc) while using the prescription pain medication. Do not use alcohol while using the pain medication. At this time, please do not use ibuprofen (Motrin, Advil) or naproxen (Aleve) for pain management as you are using the Xarelto. When the Xarelto course is completed in 4 weeks, you could use ibuprofen or naproxen for pain management (if this is allowed by your primary care provider). Wear the ANGEL LUIS hose during the day and you may remove these at night. Elevate the limb to decrease swelling. Place ice to the area often. Place a towel between your skin and the blue pad. Use the incentive spirometer often. Take deep breaths throughout the day. Please keep the dressing in place until follow-up. Notify the Clinic if the dressing becomes saturated. Increase your protein intake while you are healing. If you have diabetes, please closely monitor your blood sugars and notify your primary care provider with abnormal values. Elevated blood sugars increases the risk of infection. Call the Clinic with questions or concerns - [phone]. - Discharge Plan *PRESCRIPTION DRUG MONITORING PROGRAM REVIEWED*: No *COPY OF PRESCRIPTION DRUG MONITORING REPORT IN PATIENT RUI: No Prescriptions/Med Rec: Cyclobenzaprine [Flexeril] 10 mg PO TID PRN #40 tablet PRN Reason: Spasms oxyCODONE 5 - 10 mg PO Q4H PRN #60 tablet PRN Reason: Pain Rivaroxaban [Xarelto] 10 mg PO DAILY #30 tablet Home Medications: Home Meds Calcium Carb & Citrate/Vit D3 [Citracal + D ER] 1 tab PO DAILY 03/19/18 [History ] Cholecalciferol (Vitamin D3) [Vitamin D3] 5,000 unit PO DAILY 03/19/18 [History] FA/Lycopene/Lut/MV,Ca,Iron,Min [Centrum] 1 tab PO DAILY 03/19/18 [History] atorvaSTATin [Lipitor] 20 mg PO DAILY 03/19/18 [History] Anastrozole [Arimidex] 1 mg PO DAILY 03/18/19 [History] Hydrochlorothiazide [Microzide] 12.5 mg PO DAILY 03/18/19 [History] Lisinopril [Prinivil] 20 mg PO DAILY 03/18/19 [History] Bisacodyl [Dulcolax] 5 mg PO DAILY PRN tablet 03/22/19 [Rx] Cyclobenzaprine [Flexeril] 10 mg PO TID PRN #40 tablet 03/22/19 [Rx] Docusate Sodium [Colace] 100 mg PO BID cap 03/22/19 [Rx] Famotidine [Pepcid] 20 mg PO Q12H tablet 03/22/19 [Rx] Magnesium Hydroxide [Milk of Magnesia] 30 ml PO BID PRN cup 03/22/19 [Rx] Rivaroxaban [Xarelto] 10 mg PO DAILY #30 tablet 03/22/19 [Rx] Sennosides [Senna] 8.6 mg PO BID PRN tablet 03/22/19 [Rx] oxyCODONE 5 - 10 mg PO Q4H PRN #60 tablet 03/22/19 [Rx] Patient Handouts: Rivaroxaban oral tablets Referrals: Bev Stark PA-C [Physician [facility] Bagger] - (03/30/19 1:30pm Bev Stark PA-C 04/05/19 1:30m with Dr. Ham 05/03/19 1:30pm with Bev Stark PA-C) - Discharge Summary/Plan Comment DC Time >30 min.: No - Patient Data Vitals - Most Recent: Last Vital Signs Temp 97.5 F 03/22/19 11:26 Pulse 59 L 03/22/19 11:26 Resp 18 03/22/19 11:26 BP 94/63 03/22/19 11:26 Pulse Ox 95 03/22/19 11:26 Weight - Most Recent: 184 lb Med Orders - Current: Current Medications Discontinued Medications Acetaminophen (Tylenol) 975 mg PO ONETIME [facility] Stop: 03/21/19 18:00 Last Admin: 03/21/19 08:14 Dose: 975 mg Anastrozole (Arimidex) 1 mg PO DAILY [facility] Last Admin: 03/22/19 09:00 Dose: 1 mg Bisacodyl (Dulcolax) 5 mg PO DAILY PRN PRN Reason: Constipation Bupivacaine HCl (Sensorcaine-Mpf 0.25%) Confirm Administered Dose 30 ml .ROUTE .STK-MED ONE Stop: 03/21/19 09:08 Last Admin: 03/21/19 11:33 Dose: 30 ml Calcium Carbonate (Calcium Carbonate/Vitamin D 600 Mg-200 Unit) 1 tab PO DAILY [facility] Last Admin: 03/22/19 08:53 Dose: 1 tab Cefazolin Sodium (Ancef) Confirm Administered Dose 2 gm .ROUTE .STK-MED ONE Stop: 03/21/19 08:46 Last Admin: 03/21/19 11:29 Dose: 2 gm Cefazolin Sodium (Ancef) Confirm Administered Dose 2 gm .ROUTE .STK-MED ONE Stop: 03/21/19 09:08 Cholecalciferol (Vitamin D3) 5,000 unit PO DAILY [facility] Last Admin: 03/22/19 08:53 Dose: 5,000 unit Morphine Sulfate 8 mg/Epinephrine HCl 0.3 mg/Cefuroxime Sodium 750 mg/Ketorolac Tromethamine 30 mg/Sodium Chloride 27.9 ml 0 mg .XX ONETIME ONE Stop: 03/21/19 12:01 Last Admin: 03/21/19 13:48 Dose: Not Given Cyclobenzaprine HCl (Flexeril) 10 mg PO TID PRN PRN Reason: Spasms Last Admin: 03/21/19 18:58 Dose: 10 mg Dexamethasone (Dexamethasone) Confirm Administered Dose 20 mg .ROUTE .STK-MED ONE Stop: 03/21/19 08:46 Docusate Sodium (Colace) 100 mg PO BID [facility] Last Admin: 03/22/19 08:56 Dose: 100 mg Ephedrine Sulfate (Ephedrine In Ns) Confirm Administered Dose 25 mg .ROUTE .STK- MED ONE Stop: 03/21/19 10:51 Epinephrine HCl (Adrenalin) Confirm Administered Dose 1 mg .ROUTE .STK-MED ONE Stop: 03/21/19 03:33 Famotidine (Pepcid) 20 mg PO Q12H [facility] Last Admin: 03/22/19 08:55 Dose: 20 mg Fentanyl (Sublimaze) Confirm Administered Dose 100 mcg .ROUTE .STK-MED ONE Stop: 03/21/19 08:45 Fentanyl (Sublimaze) 50 mcg IVPUSH Q5M PRN PRN Reason: Pain Stop: 03/21/19 15:00 Hydromorphone HCl (Dilaudid) 0.5 mg IVPUSH Q10M PRN PRN Reason: Pain (severe 7-10) Stop: 03/21/19 14:00 Lactated Ringer's (Ringers, Lactated) 1,000 mls @ 125 mls/hr IV ASDIRECTED [facility] Stop: 03/21/19 23:00 Last Admin: 03/21/19 08:30 Dose: 125 mls/hr Cefazolin Sodium/Dextrose 2 gm (/ Premix) 50 mls @ 100 mls/hr IV Q8H [facility] Stop: 03/22/19 11:29 Last Admin: 03/22/19 11:25 Dose: 100 mls/hr Lidocaine HCl (Xylocaine-Mpf 1%) Confirm Administered Dose 4 mls @ as directed .ROUTE .STK-MED ONE Stop: 03/21/19 08:46 Lactated Ringer's (Ringers, Lactated) Confirm Administered Dose 1,000 mls @ as directed .ROUTE .STK-MED ONE Stop: 03/21/19 08:52 Iodine (Iodine 2% Mild Tincture) Confirm Administered Dose 30 ml .ROUTE .STK- MED ONE Stop: 03/21/19 09:08 Last Admin: 03/21/19 11:27 Dose: 18 ml Ketamine HCl (Ketalar) Confirm Administered Dose 500 mg .ROUTE .STK-MED ONE Stop: 03/21/19 08:46 Ketorolac Tromethamine (Toradol) 15 mg IVPUSH Q6H PRN PRN Reason: Pain Last Admin: 03/22/19 07:09 Dose: 15 mg Ketorolac Tromethamine (Toradol) Confirm Administered Dose 30 mg .ROUTE .STK- MED ONE Stop: 03/21/19 08:46 Lidocaine/Sodium Bicarbonate (Buffered Lidocaine 1% In Ns 8.4%) 0.25 ml IDERM ONETIME PRN PRN Reason: Prior to IV Start Stop: 03/21/19 18:00 Last Admin: 03/21/19 08:30 Dose: 0.25 ml Lisinopril (Prinivil) 20 mg PO DAILY [facility] Last Admin: 03/22/19 08:53 Dose: 20 mg Magnesium Hydroxide (Milk Of Magnesia) 30 ml PO BID PRN PRN Reason: Constipation Midazolam HCl (Versed 1 Mg/Ml) Confirm Administered Dose 2 mg .ROUTE .STK-MED ONE Stop: 03/21/19 08:45 Morphine Sulfate (Morphine) 2 mg IVPUSH Q2H PRN PRN Reason: Breakthrough Pain Multivitamins (Thera) 1 each PO DAILY [facility] Last Admin: 03/22/19 08:53 Dose: 1 each Naloxone HCl (Narcan) 0.1 mg IVPUSH Q5M PRN PRN Reason: Oversedation Ondansetron HCl (Zofran) 4 mg IVPUSH Q6H PRN PRN Reason: Nausea/Vomiting Ondansetron HCl (Zofran) Confirm Administered Dose 4 mg .ROUTE .STK-MED ONE Stop: 03/21/19 08:46 Ondansetron HCl (Zofran) 4 mg IVPUSH ONETIME PRN PRN Reason: Nausea/Vomiting Stop: 03/21/19 14:00 Oxycodone HCl (Oxycontin) 10 mg PO ONETIME [facility] Stop: 03/21/19 18:00 Last Admin: 03/21/19 08:14 Dose: 10 mg Oxycodone HCl (Oxycodone) 5 - 10 mg PO Q4H PRN PRN Reason: Pain Last Admin: 03/22/19 13:16 Dose: 10 mg Oxycodone/Acetaminophen (Percocet 325-5 Mg) 1 - 2 tab PO Q4H PRN PRN Reason: Pain Pregabalin (Lyrica) 50 mg PO ONETIME [facility] Stop: 03/21/19 18:00 Last Admin: 03/21/19 08:14 Dose: 50 mg Propofol (Diprivan 20 Ml) Confirm Administered Dose 600 mg .ROUTE .STK-MED ONE Stop: 03/21/19 08:45 Rivaroxaban (Xarelto) 10 mg PO DAILY [facility] Last Admin: 03/22/19 08:53 Dose: 10 mg Ropivacaine (Naropin 0.5%) Confirm Administered Dose 30 ml .ROUTE .STK-MED ONE Stop: 03/21/19 03:33 Senna (Senna) 8.6 mg PO BID PRN PRN Reason: Constipation Simvastatin (Zocor) 20 mg PO DAILY [facility] Last Admin: 03/22/19 08:55 Dose: 20 mg Sodium Chloride (Saline Flush) 10 ml FLUSH ASDIRECTED PRN PRN Reason: Keep Vein Open Stop: 03/21/19 18:00 Tranexamic Acid (Cyklokapron) Confirm Administered Dose 1,000 mg .ROUTE .STK- MED ONE Stop: 03/21/19 09:08 Last Admin: 03/21/19 11:41 Dose: 1,000 mg Vancomycin HCl (Vancomycin) Confirm Administered Dose 1 gm .ROUTE .STK-MED ONE Stop: 03/21/19 09:08 Last Admin: 03/21/19 11:37 Dose: 1 gm
== END 2019-03-22 13:20 | disposition home or self-care (01) | DRG 470 ==
LOC: JD.MS 07:56 → EDSTATUS 11:00
PROVIDERS: ADMIT Orthopaedic Surgery; ATTEND Orthopaedic Surgery
PROC: 0SRC0J9 Replacement of Right Knee Joint with Synthetic Substitute, Cemented, Open Approach (ICD-10-PCS; principal; 2019-03-21)
DX: M17.11 Unilateral primary osteoarthritis, right knee (principal); E78.2 Mixed hyperlipidemia; E66.3 Overweight; I10 Essential (primary) hypertension; Z96.652 Presence of left artificial knee joint; Z47.1 Aftercare following joint replacement surgery; Z79.82 Long term (current) use of aspirin; Z79.899 Other long term (current) drug therapy; Z68.28 Body mass index [BMI] 28.0-28.9, adult
CPT/HCPCS: 01402; 36415; 64450; 73560-26-RT; 73560-RT; 80053; 85027; 87641; 97110-GP; 97116-GP; 97161-GP; 97165-GO; 97535-GO; A9270-GY; C1713; C1776; J0171; J0690; J0697; J1100; J1885; J2001; J2250; J2270; J2405; J2704; J2795; J3010; J3370; J3490; J7050; J7120